=== PATIENT | female | born 1995 | race African-American/Black ===

== ENCOUNTER 2016-08-21 20:33 | Emergency (ER) | payer SELFPAY ==
[~2016-08-21] VITALS: Ht 152.4 cm; Wt 60.3 kg
[~2016-08-21 20:33] MED LIST: NAPR550T PO; ORPH100T PO
[2016-08-21 20:48] VITALS: BP 143/68
[2016-08-21] MEDS ORDERED: PROMETHAZINE IM 25 MG/ML VIAL IM ONE (21:00)
--- NOTE | 2016-08-21 21:15 | PHYS DOC ---
Past Medical History Past Medical History: Asthma Past Surgical History: No Surgical History Alcohol Use: None Drug Use: None Adult General Chief Complaint Chief Complaint: NAUSEA/VOMITING/DIARRHA HPI HPI Patient is a 20 year old female who presents emergency Department today with complaint of nausea and vomiting, body aches and headache that began earlier today. Patient denies any other ill contacts in the home. She denies any history of gastrointestinal disease. She denies any black or bloody emesis. She denies any abdominal pain. Patient is sexually active. She has not been taking any control pills and approximately a month. Review of Systems Review of Systems Constitutional: Denies fever or chills [] Eyes: Denies change in visual acuity, redness, or eye pain [] HENT: Denies nasal congestion or sore throat [] Respiratory: Denies cough or shortness of breath [] Cardiovascular: No additional information not addressed in HPI [] GI: Denies abdominal pain, nausea, vomiting, bloody stools or diarrhea [] : Denies dysuria or hematuria [] Musculoskeletal: Denies back pain or joint pain [] Integument: Denies rash or skin lesions [] Neurologic: Denies headache, focal weakness or sensory changes [] Endocrine: Denies polyuria or polydipsia [] Current Medications Current Medications Current Medications Medications (Trade) Dose Ordered Sig/Julissa Start Time Stop Time Status Last Admin Dose Admin Promethazine HCl (Phenergan Im) 25 mg 1X ONCE 08/21/16 21:00 08/21/16 21:05 DC 08/21/16 21:08 25 MG Allergies Allergies Allergies Coded Allergies Type Severity Reaction Last Updated Verified No Known Drug Allergies 08/21/16 No Physical Exam Physical Exam Constitutional: Well developed, well nourished, mild distress, non-toxic appearance. Patient is vomiting nonbilious, nonbloody or black emesis. HENT: Normocephalic, atraumatic, bilateral external ears normal, oropharynx moist, no oral exudates, scant clear rhinorrhea. Eyes: PERRLA, EOMI, conjunctiva normal, no discharge. [] Neck: Normal range of motion, no tenderness, supple, no stridor. [] Cardiovascular:Heart rate regular rhythm, no murmur [] Lungs & Thorax: Bilateral breath sounds clear to auscultation [] Abdomen: Bowel sounds normal, soft, no tenderness, no masses, no pulsatile masses. Skin: Warm, dry, no erythema, no rash. [] Back: No tenderness, no CVA tenderness. [] Extremities: No tenderness, no cyanosis, no clubbing, ROM intact, no edema. [] Neurologic: Alert and oriented X 3, normal motor function, normal sensory function, no focal deficits noted. [] Psychologic: Affect normal, judgement normal, mood normal. [] Current Patient Data Vital Signs Vital Signs Date Time Temp Pulse Resp B/P Pulse Ox O2 Delivery O2 Flow Rate FiO2 08/21/16 20:48 98.0 79 16 99 Room Air 98.0 EKG EKG [] Radiology/Procedures Radiology/Procedures [] Course & Med Decision Making Course & Med Decision Making Patient was offered 25 mg IM injection of Phenergan. She agreed to take it. Patient reports the nausea subsided approximately 20 minutes after receiving the IM injection. Dragon Disclaimer Dragon Disclaimer This electronic medical record was generated, in whole or in part, using a voice recognition dictation system. Departure Departure Impression: Primary Impression: Viral syndrome Additional Impression: Nausea and vomiting Disposition: 01 HOME, SELF-CARE Condition: IMPROVED Patient Instructions: Nausea and Vomiting, [id number], Viral Syndrome Additional Instructions: 1. Your test is negative here today. 2. Review the discharge instructions provided for home care and reasons to return the emergency department. 3. Take the medication as prescribed. 4. Rest at home for the next 2 days. 5. Follow-up with your primary care doctor if no improvement or worsening of your symptoms. Scripts Promethazine Hcl 25 Mg Tablet1 Tab PO PRN Q6HRS nausea and vomiting #20 TAB Prov:SUKHI ARMENTA 08/21/16 Problem Qualifiers SUKHI ARMENTA Aug 21, 2016 21:15
[2016-08-21] MEDS ORDERED: PROM25TA10 PO (21:37)
== END 2016-08-21 21:41 | disposition home or self-care (01) ==
LOC: ER 20:33 → MERGE 20:33 → ER 21:41
DX: B34.9 Viral infection, unspecified (principal); R11.2 Nausea with vomiting, unspecified; J45.909 Unspecified asthma, uncomplicated
CPT/HCPCS: 81025; 96372; 99283; J2550

== ENCOUNTER 2017-01-19 22:58 | Emergency (ER) | payer SELFPAY ==
[~2017-01-19] VITALS: Ht 152.4 cm; Wt 61.2 kg
[~2017-01-19 22:58] MED LIST changes: +PROM25TA10 PO
[2017-01-19 23:11] VITALS: BP 109/33
--- NOTE | 2017-01-19 23:27 | PHYS DOC ---
Past Medical History Past Medical History: Asthma, Other Additional Past Medical Histor: chronic back pain Past Surgical History: No Surgical History Alcohol Use: Rarely Drug Use: None Adult General Chief Complaint Chief Complaint: VAGINAL PROBLEM HPI HPI Patient is a 21 year old female who presents requesting to be tested and treated for STDs. Patient states the boyfriend had sex with somebody else and was treated today hence patient needs to be tested and treated. She denies any symptoms. Review of Systems Review of Systems Constitutional: Denies fever or chills [] GI: STD testing and treatment : Denies dysuria or hematuria [] Musculoskeletal: Denies back pain or joint pain [] Integument: Denies rash or skin lesions [] Neurologic: Denies headache, focal weakness or sensory changes [] Endocrine: Denies polyuria or polydipsia [] Current Medications Current Medications Current Medications Medications (Trade) Dose Ordered Sig/Julissa Start Time Stop Time Status Last Admin Dose Admin Azithromycin (Zithromax) 1,000 mg 1X ONCE 01/20/17 00:00 01/20/17 00:01 DC 01/19/17 23:54 1,000 MG Ceftriaxone Sodium (Rocephin Im) 250 mg 1X ONCE 01/20/17 00:00 01/20/17 00:01 DC 01/19/17 23:55 250 MG Metronidazole (Flagyl) 2,000 mg 1X ONCE 01/20/17 00:00 01/20/17 00:01 DC 01/19/17 23:54 2,000 MG Allergies Allergies Allergies Coded Allergies Type Severity Reaction Last Updated Verified No Known Drug Allergies 09/28/14 No Physical Exam Physical Exam Constitutional: Well developed, well nourished, no acute distress, non-toxic appearance. [] Abdomen: Bowel sounds normal, soft, no tenderness, no masses, no pulsatile masses. [] Pelvic exam External pelvic appears normal, cervix is closed, no CMT, no adnexal tenderness , small amount of white discharge in the vaginal vault. No bleeding. Skin: Warm, dry, no erythema, no rash. [] Back: No tenderness, no CVA tenderness. [] Extremities: No tenderness, no cyanosis, no clubbing, ROM intact, no edema. [] Neurologic: Alert and oriented X 3, normal motor function, normal sensory function, no focal deficits noted. [] Psychologic: Affect normal, judgement normal, mood normal. [] Current Patient Data Vital Signs Vital Signs Date Time Temp Pulse Resp B/P (MAP) Pulse Ox O2 Delivery O2 Flow Rate FiO2 01/19/17 23:11 98.5 83 16 96 Room Air 98.5 Lab Values Laboratory Tests Test 01/19/17 22:22 01/19/17 23:03 POC Urine HCG, Qualitative Hcg negative (Negative) Urine Collection Type Unknown Urine Color Charissa Urine Clarity Turbid Urine pH 6.0 Urine Specific [place] >=1.030 Urine Protein 30 mg/dL (NEG-TRACE) Urine Glucose (UA) Negative mg/dL (NEG) Urine Ketones (Stick) 15 mg/dL (NEG) Urine Blood Negative (NEG) Urine Nitrite Negative (NEG) Urine Bilirubin Small (NEG) Urine Urobilinogen Dipstick 1.0 mg/dL (0.2 mg/dL) Urine Leukocyte Esterase Large (NEG) Urine RBC 0 /HPF (0-2) Urine WBC 20-40 /HPF (0-4) Urine Squamous Epithelial Cells Many /LPF Urine Bacteria Mod /HPF (0-FEW) Urine Mucus Marked /LPF Microbiology 01/19/17 Wet Prep - Final, Complete EKG EKG [] Radiology/Procedures Radiology/Procedures [] Course & Med Decision Making Course & Med Decision Making Pertinent Labs and Imaging studies reviewed. (See chart for details) This is a 21-year-old female patient who presents to the ED for STD testing and treatment. Specimens were obtained and sent to lab.Patient was given Flagyl Rocephin and azithromycin. Wet prep positive for BV, patient discharged and Flagyl. Urine positive for UTI , discharged with Bactrim. Educated on safe sex practices especially the need to use protection at all times. Dragon Disclaimer Dragon Disclaimer This electronic medical record was generated, in whole or in part, using a voice recognition dictation system. Departure Departure Impression: Primary Impression: Concern about STD in female without diagnosis Additional Impressions: Urinary tract infection Bacterial vaginosis Disposition: 01 HOME, SELF-CARE Condition: STABLE Referrals: IVETTE BURDICK DO (PCP) Follow-up with your doctor in 1-2 weeks as needed Patient Instructions: Bacterial Vaginosis, [id number], Urinary Tract Infection Additional Instructions: You were treated for sexually transmitted diseases. You also tested positive for bacterial vaginosis, this is not a sexually transmitted disease. Please complete your antibiotics. You also were positive for UTI. Contact all your sex partners, let them know you were treated for STDs and ask them to seek treatment too. Use protection at all times. Scripts Metronidazole (FLAGYL) 500 Mg Tablet 1 TAB PO BID, #10 TAB Prov: HARJIT FLYNN APRN 01/20/17 Sulfamethoxazole/Trimethoprim (BACTRIM DS TABLET) 1 Each Tablet 1 TAB PO BID, #14 TAB Prov: HARJIT FYLNN APRN 01/20/17 Problem Qualifiers Additional Impressions: Urinary tract infection Urinary tract infection type: site unspecified Hematuria presence: without hematuria Qualified Codes: N39.0 - Urinary tract infection, site not specified HARJIT FLYNN APRN Jan 19, 2017 23:27
[2017-01-19 23:28] LABS: BILIRUBIN,URINE SMALL (NEG); GLUCOSE,URINE NEGATIVE (NEG); NITRITE,URINE NEGATIVE (NEG); PROTEIN,URINE 30 mg/dL (NEG-TRACE)
[2017-01-19 23:37] LABS: BACTERIA,URINE MOD /HPF (0-FEW); RBC,URINE 0 /HPF (0-2); SQUAMOUS EPITHELIAL CELL,UR MANY /LPF; WBC,URINE 20-40 /HPF (0-4)
[2017-01-20] MEDS ORDERED: metroNIDAZOLE 500 MG TABLET PO ONE
[2017-01-20] MEDS ORDERED: cefTRIAXone IM 250 MG VIAL IM ONE
[2017-01-20] MEDS ORDERED: AZITHROMYCIN 250 MG TABLET. PO ONE
[2017-01-20] MEDS ORDERED: METR500T PO (00:06)
[2017-01-20] MEDS ORDERED: SULF1TAB24 PO (00:06)
[2017-01-20] MEDS ORDERED: ONDA4TAB10 SL (09:22)
== END 2017-01-20 00:12 | disposition home or self-care (01) ==
LOC: ER 22:58
DX: Z20.2 Contact with and (suspected) exposure to infections with a predominantly sexual mode of transmission (principal); N39.0 Urinary tract infection, site not specified; N76.0 Acute vaginitis; B96.89 Other specified bacterial agents as the cause of diseases classified elsewhere; J45.909 Unspecified asthma, uncomplicated; G89.29 Other chronic pain
CPT/HCPCS: 81001; 81025; 87491; 87591; 96372; 99284; J0696; Q0111; Q0144

== ENCOUNTER 2017-01-20 08:48 | Emergency (ER) | payer BC, OTHER ==
[~2017-01-20] VITALS: Ht 152.4 cm; Wt 61.2 kg
[~2017-01-20 08:48] MED LIST changes: +METR500T PO; +SULF1TAB24 PO
[2017-01-20 09:02] VITALS: BP 150/84
[2017-01-20] MEDS ORDERED: ONDANSETRON ODT 4 MG TAB.RAPDIS. PO ONE (09:15)
[2017-01-20] MEDS ORDERED: ONDA4TAB10 SL (09:22)
--- NOTE | 2017-01-20 09:25 | PHYS DOC ---
Past Medical History Past Medical History: Asthma, Other Additional Past Medical Histor: chronic back pain Past Surgical History: No Surgical History Alcohol Use: Rarely Drug Use: None Adult General Chief Complaint Chief Complaint: NAUSEA/VOMITING/DIARRHA HPI HPI Patient is a 21 year old female presents emergency department stating that she was seen here last night for a concern for sexual transmitted infections. Patient was provided with Rocephin, Flagyl and Zithromax. Patient states that she she vomited up her medications. Patient states that she had nausea and vomiting this morning as well. She denies taking any Flagyl this morning and she was treated for bacterial vaginosis as well as a urinary tract infection. Patient states she has not picked up her prescription as of this time. Patient denies any fever, chills she denies any abdominal pain or discomfort. She denies any flank pain or discomfort. Review of Systems Review of Systems Constitutional: Denies fever or chills [] Eyes: Denies change in visual acuity, redness, or eye pain [] HENT: Denies nasal congestion or sore throat [] Respiratory: Denies cough or shortness of breath [] Cardiovascular: No additional information not addressed in HPI [] GI: Denies abdominal pain, bloody stools or diarrhea. C/o nausea and vomiting : Denies dysuria or hematuria [] Musculoskeletal: Denies back pain or joint pain [] Integument: Denies rash or skin lesions [] Neurologic: Denies headache, focal weakness or sensory changes [] Endocrine: Denies polyuria or polydipsia [] Current Medications Current Medications Current Medications Medications (Trade) Dose Ordered Sig/[facility] Start Time Stop Time Status Last Admin Dose Admin Ondansetron HCl (Zofran Odt) 4 mg 1X ONCE 01/20/17 09:15 01/20/17 09:16 ND Allergies Allergies Allergies Coded Allergies Type Severity Reaction Last Updated Verified No Known Drug Allergies 09/28/14 No Physical Exam Physical Exam Constitutional: Well developed, well nourished, no acute distress, non-toxic appearance. [] HENT: Normocephalic, atraumatic, bilateral external ears normal, oropharynx moist, no oral exudates, nose normal. [] Eyes: PERRLA, EOMI, conjunctiva normal, no discharge. [] Neck: Normal range of motion, no tenderness, supple, no stridor. [] Cardiovascular:Heart rate regular rhythm, no murmur [] Lungs & Thorax: Bilateral breath sounds clear to auscultation [] Abdomen: Bowel sounds normal, soft, no tenderness, no masses, no pulsatile masses. [] Skin: Warm, dry, no erythema, no rash. [] Back: No tenderness, no CVA tenderness. [] Extremities: No tenderness, no cyanosis, no clubbing, ROM intact, no edema. [] Neurologic: Alert and oriented X 3, normal motor function, normal sensory function, no focal deficits noted. [] Psychologic: Affect normal, judgement normal, mood normal. [] Current Patient Data Vital Signs Vital Signs Date Time Temp Pulse Resp B/P (MAP) Pulse Ox O2 Delivery O2 Flow Rate FiO2 01/20/17 09:02 98.6 86 18 96 Room Air 98.6 EKG EKG [] Radiology/Procedures Radiology/Procedures [] Course & Med Decision Making Course & Med Decision Making Pertinent Labs and Imaging studies reviewed. (See chart for details) Patient was seen here last night for bacterial vaginosis, urinary tract infection and concerns for sexually transmitted infections. Patient was treated with Rocephin, Flagyl, Zithromax here in the emergency department. Patient was sent home with a prescription for Flagyl and Bactrim. Patient states she has not picked the medications at that she became nauseated and vomiting last night after receiving the Flagyl and Zithromax. Patient was provided with Zofran here in the emergency department. She was also provided with a by mouth challenge in which was able to tolerate well. Patient will be provided with Zofran at home for nausea vomiting. She was instructed that she would need to take the Bactrim in the Flagyl as prescribed. Patient was also encouraged to drink plenty of fluids such as water Gatorade and propel. Patient was also encouraged to drink plenty of cranberry juice. She was encouraged to avoid cranberry juice cocktail , carbonated beverages, citrus fruits, caffeine, alcohol as these are all considered irritants to the bladder. Patient agrees with discharge instructions treatment regimens and follow-up recommendations. [] Dragon Disclaimer Dragon Disclaimer This electronic medical record was generated, in whole or in part, using a voice recognition dictation system. Departure Departure Impression: Primary Impression: Nausea and vomiting Disposition: HOME, SELF-CARE Condition: STABLE Referrals: BURDICK,VAN T DO (PCP) Patient Instructions: Nausea and Vomiting, [id number] Additional Instructions: Medication as prescribed. Drink plenty of fluids such as water Gatorade or propel and cranberry juice. Avoid cranberry juice cocktail, carbonate beverages, citrus fruits, caffeine, alcohol as these are considered irritants to the bladder. Continue to take the medications as which were prescribed for you last night as the Flagyl and Bactrim. Avoid drinking any alcohol with this Flagyl as this will create have abdominal pain and discomfort. Follow-up to primary care physician next 7-7 days. Return back to emergency department sign symptoms become worse. Scripts Ondansetron (ZOFRAN ODT) 4 Mg Tab.rapdis 1 TAB SL Q8HRS, #10 TAB Prov: JIMMIE VALENCIA APRN 01/20/17 JIMMIE VALENCIA APRN Jan 20, 2017 09:25
== END 2017-01-20 09:52 | disposition home or self-care (01) ==
LOC: ER 08:48
DX: R11.2 Nausea with vomiting, unspecified (principal); Z20.2 Contact with and (suspected) exposure to infections with a predominantly sexual mode of transmission; G89.29 Other chronic pain; J45.909 Unspecified asthma, uncomplicated
CPT/HCPCS: 99283; Q0162

== ENCOUNTER 2019-02-14 09:12 | Emergency (ER) | payer OTHER ==
[~2019-02-14] VITALS: Ht 152.4 cm; Wt 63.5 kg
[~2019-02-14 09:12] MED LIST changes: +NAPR-682 PO; -NAPR550T PO; +ONDA4TAB10 SL
[2019-02-14 09:30] VITALS: BP 131/81
[2019-02-14] MEDS ORDERED: XOPENEX1.25 MG/3 NEB (09:44)
--- NOTE | 2019-02-14 09:45 | PHYS DOC ---
Past Medical History Past Medical History: Asthma, Other Additional Past Medical Histor: chronic back pain Past Surgical History: No Surgical History Alcohol Use: Rarely Drug Use: None Adult General Chief Complaint Chief Complaint: COUGH HPI HPI Patient is a 23 year old AA female who presents to the ER with complaints of a productive cough with clear to yellow sputum for the last 2 days. She denies any pain at this time. She requests a refill of her xopenex for her nebulizer. ROS Pt denies any fever, ear pain, sore throat, nausea, vomiting, diarrhea, abdomi nal pain, or back pain. She reports some chest tightness and wheezing. Pt denies any shortness of breath at this time. She also complains of sneezing and states that the cough is worse in the morning. All other ROS is neg unless otherwise noted in HPI. Review of Systems Review of Systems See Above Allergies Allergies Allergies Coded Allergies Type Severity Reaction Last Updated Verified No Known Drug Allergies 09/28/14 No Physical Exam Physical Exam See Above Constitutional: Well developed, well nourished, no acute distress, non-toxic appearance. [] HENT: Normocephalic, atraumatic, bilateral external ears normal, bilateral TMs normal, oropharynx moist, no oral exudates, nasal turbinates edematous and erythematous Eyes: PERRLA, EOMI, conjunctiva normal, no discharge. [] Neck: Normal range of motion, no tenderness, supple, no stridor. [] Cardiovascular:Heart rate regular rhythm, no murmur [] Lungs & Thorax: Bilateral breath sounds clear to auscultation, Respirations even and unlabored, no retractions, no respiratory distress [] Skin: Warm, dry, no erythema, no rash. [] Extremities: No cyanosis, no clubbing, ROM intact, no edema. [] Neurologic: Alert and oriented X 3, no focal deficits noted. [] Psychologic: Affect normal, judgement normal, mood normal. [] Current Patient Data Vital Signs Vital Signs Date Time Temp Pulse Resp B/P (MAP) Pulse Ox O2 Delivery O2 Flow Rate FiO2 02/14/19 09:29 98.4 76 20 98 98.4 EKG EKG [] Radiology/Procedures Radiology/Procedures [] Course & Med Decision Making Course & Med Decision Making Pertinent Labs and Imaging studies reviewed. (See chart for details) dx: allergic cough, allergic rhinitis [] Dragon Disclaimer Dragparker Disclaimer This electronic medical record was generated, in whole or in part, using a voice recognition dictation system. Departure Departure Impression: Primary Impression: Allergic cough Additional Impression: Allergic rhinitis Disposition: 01 HOME, SELF-CARE Condition: STABLE Referrals: UNKNOWN PCP NAME (PCP) Patient Instructions: Allergic Rhinitis Additional Instructions: Fill prescription(s) and use as directed. Recommend a daily antihistamine such as Zyrtec (Cetirizine), Kamala, or Claritin daily at bedtime. Tylenol or ibuprofen prn pain/fever. Increase clear fluids. Avoid triggers such as smoke, fragrance, dust, and pollen. May take OTC cough suppressants as needed. Follow- up with your primary care doctor if symptoms persist, return to the ER if symptoms worsen. Scripts Levalbuterol Hcl (XOPENEX) 1.25 Mg/3 Ml Vial.neb 1 VIAL NEB QID, #120 VIAL 0 Refills Prov: JESSEE RUBALCAVA APRN 02/14/19 Problem Qualifiers Additional Impression: Allergic rhinitis Allergic rhinitis trigger: unspecified Allergic rhinitis seasonality: unspecified Qualified Codes: J30.9 - Allergic rhinitis, unspecified JESSEE RUBALCAVA [employer] Feb 14, 2019 09:45
== END 2019-02-14 10:19 | disposition home or self-care (01) ==
LOC: ER 09:12
DX: J45.909 Unspecified asthma, uncomplicated (principal); R07.89 Other chest pain; G89.29 Other chronic pain
CPT/HCPCS: 99283